=== PATIENT | female | born 1990 | race Caucasian/White ===

== ENCOUNTER 2016-09-12 21:29 | Emergency (ER) | payer OTHER ==
[2016-09-13] MEDS ORDERED: TRIAMCINOLONE 0.1% CREAM 15 GM TUBE TOP STA (00:17)
[2016-09-13 01:05] VITALS: BP 129/85
--- NOTE | 2016-09-13 01:16 | ED Physician Documentation ---
PD HPI ANIMAL BITE - Stated complaint Stated Complaint: RASH - Chief complaint Chief Complaint: Wound - Additional information Additional information: Patient is a pleasant 26-year-old female who presents with pruritic Clusters of lesions mostly on her lower back and one on the right shoulder. The patient has a history of psoriatic arthritis and is on immunosuppressants and is concerned about MRSA infection which she has had before. She noticed the lesions earlier today. They are pruritic. They have not spread. She has no other symptoms such as fever or chills. There is no nausea vomiting, Constipation or diarrhea. Psoriatic arthritis is stable. Review of systems: For pertinent positive and negatives in the review of systems please see history of present illness. Otherwise all other systems have been reviewed and are negative. Dragon disclaimer: Parts of this medical record were created using voice recognition technology. Because of the inherent limitations of this system occasional same sounding word substitutions do occur and persist despite proofreading. Please read the document for context. Review of Systems Constitutional: denies: Fever, Chills GI: denies: Abdominal Pain, Abdominal Swelling Skin: reports: Rash, Lesions, Abrasion (s) Musculoskeletal: denies: Neck pain, Back pain PD PAST MEDICAL HISTORY - Present Medications Home Medications: Ambulatory Orders Medication Instructions Recorded Confirmed Loratadine [Claritin] 10 mg PO DAILY #7 tablet 09/13/16 Triamcinolone 0.1% Cream [Kenalog 0.5 gm TOP BID #1 tube 09/13/16 0.1% Cream] - Allergies Allergies/Adverse Reactions: Allergies Allergy/AdvReac Type Severity Reaction Status Date / Time No Known Drug Allergies Allergy Verified 09/12/16 21:46 PD ED PE NORMAL - Vitals Vital signs reviewed: Yes - General General: Alert and oriented X 3, No acute distress - HEENT HEENT: Atraumatic - Neck Neck: Supple, no meningeal sign - Cardiac Cardiac: RRR, No gallop - Respiratory Respiratory: No respiratory distress, Clear bilaterally - Abdomen Abdomen: Normal bowel sounds, Non tender - Derm Derm: Other Results - Vitals Vitals: Vital Signs - 24 hr 09/12/16 09/13/16 21:46 01:04 Temperature 36.5 C Heart Rate 88 85 Respiratory 16 16 Rate Blood Pressure 127/82 H 129/85 H O2 Saturation 99 100 Oxygen O2 Source Room air PD MEDICAL DECISION MAKING - ED course ED course: Patient is a pleasant young female who is effectively immunocompromised secondary to her psoriatic arthritis treatment. She is concerned about a cutaneous staph infection because she has had this problem before. On examination I see no evidence of anything that looks like a staphylococcal infection. She has a few clusters of papules on a erythematous base that look more like a contact versus allergic dermatitis perhaps insect bite. Recommended topical Kenalog which wasPatient here and oral loratadine. She will be discharged on these medications and continue to watch for any worsening. Disposition: To home Clinical impression: 1. Contact versus allergic dermatitis Departure - Departure Disposition: 01 Home, Self Care Clinical Impression: Insect bite Qualifiers: Encounter type: initial encounter Qualified Code(s): W57.XXXA - Bitten or stung by nonvenomous insect and other nonvenomous arthropods, initial encounter Condition: Good Instructions: Bites Stings Insect Prescriptions: Loratadine [Claritin] 10 mg PO DAILY #7 tablet Triamcinolone 0.1% Cream [Kenalog 0.1% Cream] 0.5 gm TOP BID #1 tube Discharge Date/Time: 09/13/16 01:04
== END 2016-09-13 01:04 | disposition home or self-care (01) ==
LOC: ED 21:29
DX: S30.860A Insect bite (nonvenomous) of lower back and pelvis, initial encounter (principal); S40.261A Insect bite (nonvenomous) of right shoulder, initial encounter; W57.XXXA Bitten or stung by nonvenomous insect and other nonvenomous arthropods, initial encounter; L30.9 Dermatitis, unspecified; L40.50 Arthropathic psoriasis, unspecified; Z86.14 Personal history of Methicillin resistant Staphylococcus aureus infection
CPT/HCPCS: 99282; 99283; A9270

== ENCOUNTER 2017-04-11 06:20 | Emergency (ER) | payer OTHER ==
[2017-04-11 06:44] LABS: BILIRUBIN,URINE NEGATIVE (NEGATIVE); GLUCOSE, URINE (UA) NEGATIVE (NEGATIVE); KETONES,URINE (UA) NEGATIVE (NEGATIVE); LEUKOCYTE ESTERASE, URINE NEGATIVE (NEGATIVE); NITRITE,URINE NEGATIVE (NEGATIVE); OCCULT BLOOD,URINE NEGATIVE (NEGATIVE); PROTEIN,URINE NEGATIVE (NEGATIVE); UROBILINOGEN,URINE 0.2 (NORMAL) E.U./dL (NORMAL)
[2017-04-11 06:47] LABS: CLARITY,URINE CLEAR (CLEAR); HCG UR QUAL NEGATIVE
[2017-04-11] MEDS ORDERED: ACETAMINOPHEN 325 MG TABLET PO STA (07:38)
[2017-04-11] MEDS ORDERED: PHENAZOPYRIDINE 100 MG TABLET PO STA (07:38)
[2017-04-11] MEDS ORDERED: traMADol 50 MG TABLET PO STA (07:38)
[2017-04-11] MEDS ORDERED: metroNIDAZOLE 250 MG TABLET PO STA (08:06)
[2017-04-11] MEDS ORDERED: FLUCONAZOLE 100 MG TABLET PO STA (08:06)
--- NOTE | 2017-04-11 08:10 | ED Physician Documentation ---
PD HPI FEMALE - Stated complaint Stated Complaint: UNABLE TO URINATE - Chief complaint Chief Complaint: Abd Pain - History obtained from History obtained from: Patient - History of Present Illness Timing - onset: Last night Timing - duration: Hours Timing - details: Abrupt onset, Still present Associated symptoms: Pelvic pain (crampy in bladder area), Dysuria, Urinary frequency. No: Fever, Abdominal pain, Vaginal bleeding, Vaginal discharge, Genital sore/lesion, Hematuria Contributing factors: Sexually active (with just ). No: , Oral contraceptive, Exposed to STD Similar symptoms before: Diagnosis (UTIs) Recently seen: Not recently seen Review of Systems Constitutional: denies: Fever, Chills Throat: denies: Sore throat Respiratory: denies: Cough GI: denies: Vomiting, Diarrhea : reports: Dysuria (just today) Skin: denies: Rash, Lesions Musculoskeletal: reports: Joint pain (decreased with recent prednisone burst, due to psoriatic arthritis. On immunosuppressants.) Neurologic: denies: Generalized weakness PD PAST MEDICAL HISTORY - Past Medical History Past Medical History: Yes Musculoskeletal: Other Derm: Psoriasis Other Past Medical History: Psoriatic Arthritis - Past Surgical History Past Surgical History: No - Present Medications Home Medications: Ambulatory Orders Medication Instructions Recorded Confirmed Adalimumab [Humira Pen] 04/11/17 [place] Carbonate 1 cap PO DAILY 04/11/17 04/11/17 Methotrexate Sodium/Pf 10 ml IM 04/11/17 [Methotrexate 25 mg/ml Vial] Metronidazole [Flagyl] 500 mg PO BID #14 tablet 04/11/17 Phenazopyridine HCl 200 mg PO TID PRN #10 tablet 04/11/17 Tramadol HCl 50 mg PO Q6H PRN #15 tablet 04/11/17 - Allergies Allergies/Adverse Reactions: Allergies Allergy/AdvReac Type Severity Reaction Status Date / Time No Known Drug Allergies Allergy Verified 04/11/17 06:29 - Social History Does the pt smoke?: No Smoking Status: Never smoker Does the pt drink ETOH?: Yes Does the pt have substance abuse?: No - Immunizations Immunizations are current?: Yes - POLST Patient has POLST: No PD ED PE NORMAL - Vitals Vital signs reviewed: Yes - General General: Alert and oriented X 3, No acute distress, Well developed/nourished - HEENT HEENT: Pharynx benign - Cardiac Cardiac: RRR, No murmur - Respiratory Respiratory: Clear bilaterally - Abdomen Abdomen: Normal bowel sounds, Soft, Non distended, Other (minimally tender suprapubic without guarding nor distension.) - Female 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 No cervicitis noted per se. Look like yeast and has appearance of BV as well. ) - Rectal Rectal: Deferred - Back Back: No CVA TTP - Derm Derm: Normal color, Warm and dry Results - Vitals Vitals: Vital Signs - 24 hr 04/11/17 06:20 Temperature 36.0 C L Heart Rate 114 H Respiratory 18 Rate Blood Pressure 108/75 O2 Saturation 99 Oxygen O2 Source Room air - Labs Labs: Laboratory Tests 04/11/17 06:40 Urine Color YELLOW Urine Clarity CLEAR Urine pH 6.0 Ur Specific [place] >=1.030 H Urine Protein NEGATIVE Urine Glucose (UA) NEGATIVE Urine Ketones NEGATIVE Urine Occult Blood NEGATIVE Urine Nitrite NEGATIVE Urine Bilirubin NEGATIVE Urine Urobilinogen 0.2 (NORMAL) Ur Leukocyte Esterase NEGATIVE Ur Microscopic Review NOT INDICATED Urine Culture Comments NOT INDICATED Urine HCG, Qual NEGATIVE PD MEDICAL DECISION MAKING - ED course Complexity details: reviewed results (UA looks too normal for symptoms, so will check pelvic exam for vaginitis. This did show clinically likely yeast and possible BV. Does not have appearance of STD, but cultures obtained. ), re- evaluated patient (pain lessened with PO meds here. Her scanner does not show retention. ), considered differential, d/w patient Departure - Departure Disposition: 01 Home, Self Care Clinical Impression: Dysuria Vaginitis Qualifiers: Chronicity: acute Qualified Code(s): N76.0 - Acute vaginitis Condition: Stable Record reviewed to determine appropriate education?: Yes Instructions: ED Vaginal Infec Fungal Archana, ED Vaginosis Bacterial Prescriptions: Metronidazole [Flagyl] 500 mg PO BID #14 tablet Phenazopyridine HCl 200 mg PO TID PRN #10 tablet PRN Reason: Pain Tramadol HCl 50 mg PO Q6H PRN #15 tablet PRN Reason: Pain Comments: There does appear to be a vaginitis. It looks mostly yeast though it consider bacterial vaginitis as well. We will have her preliminary microscope result from the lab and an hour to though is not completely accurate. The appearance of it on exam is closely as accurate. Neuro culture results that will result in 2-3 days to look for bacterial causes and we will call you if we need to amend the antibiotics. For now we will treated as yeast infection with an antifungal today repeated in 5 days. He can diminish the dysuria symptoms with phenazopyridine as well as just Tylenol ibuprofen or tramadol. Use Flagyl twice daily for likely bacterial vaginitis as well especially in lieu of your immunosuppressants.
[2017-04-11 08:18] VITALS: BP 112/69
== END 2017-04-11 08:18 | disposition home or self-care (01) ==
LOC: ED 06:20
DX: N76.0 Acute vaginitis (principal); R30.0 Dysuria; L40.9 Psoriasis, unspecified
CPT/HCPCS: 51798; 81003; 81025; 87210; 87491; 87591; 99283; A9270; 81001; 87086